=== PATIENT | male | born 1945 | race Caucasian/White ===

== ENCOUNTER 2019-02-04 07:17 | Day surgery (SDC) | payer MEDICARE ==
[~2019-02-04] VITALS: Ht 182.9 cm; Wt 86.0 kg
[~2019-02-04 07:17] MED LIST: ASPI-12 PO; ATOR10TA PO; CALC0.253 PO; CARV-49 PO; CLOP75TA15 PO; COLC0.6T67 PO; COU3T PO; COU4T PO; DOCU-28 PO; FEBU40TA PO; FERR325T39 PO; FURO40TA4 PO; HYDR-4353 PO; LIDOcaine 1% 30ml preserv. free vial IJ STA; LOSA50TA3 PO; METO-539 PO; NITR0.4T SL; ROPI0.252 PO; SPIR25TA5 PO
[2019-02-04] MEDS ORDERED: albumin 25% 100mL bottle x 1 IV ONE (07:45)
[2019-02-04 08:43] VITALS: BP 76/49
--- NOTE | 2019-02-04 09:00 | NUR ---
ULTRASOUND COMPLETED BY Charito PHELAN. PROCEDURE CANCELED DUE TO LOW AMOUNT OF FLUID PRESENT. B/P LOW ALSO. Charito PHELAN TALKED WITH PATIENT AND FAMILY REGARDING MEDICATION, B/P AND RESCHEDULING APPOINTMENT. PATIENT ASYMPTOMATIC WITH HYPOTENSION. NO DISTRESS NOTED. DISCHARGED WITH ALL BELONGINGS VIA W/C ACCOMPANIED BY SON MELITON.
[2019-02-04] MEDS ORDERED: WARF-65 PO (09:52)
[2019-02-04] MEDS ORDERED: IRON PO (09:52)
[2019-02-04] MEDS ORDERED: FEBU40TA PO (09:52)
[2019-02-04] MEDS ORDERED: O2 NASALCANN (09:53)
[2019-02-04] MEDS ORDERED: KEN0.1O TP (09:56)
== END 2019-02-04 09:10 | disposition home or self-care (01) ==
LOC: SSTAY O 07:17
PROVIDERS: ATTEND Radiology Vascular & Interventional Radiology
DX: R18.8 Other ascites (principal); Z53.8 Procedure and treatment not carried out for other reasons; I50.9 Heart failure, unspecified; Z95.1 Presence of aortocoronary bypass graft; Z98.890 Other specified postprocedural states; Z79.899 Other long term (current) drug therapy; Z79.01 Long term (current) use of anticoagulants
CPT/HCPCS: 76705; J3490

== ENCOUNTER 2019-02-10 08:44 | Day surgery (SDC) | payer MEDICARE ==
[~2019-02-10] VITALS: Ht 182.9 cm; Wt 92.7 kg
[2019-02-10] VITALS (8 sets, daily range): BP systolic 90–102; BP diastolic 55–66
[~2019-02-10 08:44] MED LIST changes: -ATOR10TA PO; -CLOP75TA15 PO; -COLC0.6T67 PO; -COU4T PO; -FERR325T39 PO; -HYDR-4353 PO; +IRON PO; +KEN0.1O TP; -LIDOcaine 1% 30ml preserv. free vial IJ STA; -NITR0.4T SL; +O2 NASALCANN; -SPIR25TA5 PO; +WARF-65 PO
[2019-02-10] MEDS ORDERED: LIDOcaine 1% 30ml preserv. free vial IJ STA (08:52)
[2019-02-10] MEDS ORDERED: normal saline 1000ml 1,000 ML IV PRN (09:25)
[2019-02-10] MEDS ORDERED: albumin 25% 100mL bottle x 1 IV ONE (09:25)
[2019-02-10 09:39] LABS: INR 1.6 INR; PROTHROMBIN TIME 15.6 SECONDS (9.0-12.0)
== END 2019-02-10 11:45 | disposition home or self-care (01) ==
LOC: SSTAY O 08:44
PROVIDERS: ATTEND Radiology Diagnostic Radiology
DX: R18.8 Other ascites (principal); I50.9 Heart failure, unspecified; Z91.048 Other nonmedicinal substance allergy status; Z91.09 Other allergy status, other than to drugs and biological substances
CPT/HCPCS: 36415; 49083; 85610; C1729; J3490; J7030; P9047

== ENCOUNTER 2019-02-21 08:30 | Day surgery (SDC) | payer MEDICARE ==
[~2019-02-21] VITALS: Ht 182.9 cm; Wt 98.9 kg
[2019-02-21 08:30] VITALS: BP 112/62
[~2019-02-21 08:30] MED LIST changes: -FURO40TA4 PO; +LIDOcaine 1% 30ml preserv. free vial SQ STA; -METO-539 PO; -ROPI0.252 PO
[2019-02-21] MEDS ORDERED: albumin 25% 100mL bottle x 1 IV PRN (09:00)
[2019-02-21] MEDS ORDERED: normal saline 1000ml 1,000 ML IV PRN (09:00)
[2019-02-21] MEDS ORDERED: ASPI-1265 PO (09:11)
[2019-02-21] MEDS ORDERED: ATOR10TA70 PO (09:11)
[2019-02-21] MEDS ORDERED: ZAR5T PO (09:11)
[2019-02-21] MEDS ORDERED: WARF-65 PO (09:11)
[2019-02-21] MEDS ORDERED: COU1T PO (09:11)
[2019-02-21] MEDS ORDERED: AMIO200T40 PO (09:11)
[2019-02-21 09:33] VITALS: BP 111/62
[2019-02-21 09:48] VITALS: BP 109/63
[2019-02-21 10:03] VITALS: BP 104/62
[2019-02-21 10:18] VITALS: BP 110/64
[2019-02-21 10:33] VITALS: BP 105/58
== END 2019-02-21 10:45 | disposition home or self-care (01) ==
LOC: SSTAY O 08:30
PROVIDERS: ATTEND Radiology Diagnostic Radiology
DX: R18.8 Other ascites (principal); I50.9 Heart failure, unspecified; Z95.1 Presence of aortocoronary bypass graft; Z95.0 Presence of cardiac pacemaker; Z79.899 Other long term (current) drug therapy; Z79.01 Long term (current) use of anticoagulants; Z82.3 Family history of stroke; Z84.89 Family history of other specified conditions
CPT/HCPCS: 49083; C1729; J3490; J7030; P9047

== ENCOUNTER 2019-03-10 08:22 | Day surgery (SDC) | payer MEDICARE ==
[~2019-03-10] VITALS: Ht 182.9 cm; Wt 100.0 kg
[~2019-03-10 08:22] MED LIST changes: +AMIO200T40 PO; -ASPI-12 PO; +ASPI-1265 PO; +ATOR10TA70 PO; +COU1T PO; -COU3T PO; -LIDOcaine 1% 30ml preserv. free vial SQ STA; -LOSA50TA3 PO; +ZAR5T PO
[2019-03-10] MEDS ORDERED: albumin 25% 100mL bottle x 1 IV PRN (08:40)
[2019-03-10] MEDS ORDERED: normal saline 1000ml 1,000 ML IV PRN (08:40)
[2019-03-10] MEDS ORDERED: FURO-149 PO (08:57)
[2019-03-10 08:59] VITALS: BP 111/66
[2019-03-10 09:20] VITALS: BP 130/53
[2019-03-10 09:30] VITALS: BP 108/64
[2019-03-10 09:45] VITALS: BP 102/61
[2019-03-10 10:00] VITALS: BP 98/51
[2019-03-10] MEDS ORDERED: LIDOcaine 1% 30ml preserv. free vial SQ ONE (10:00)
[2019-03-10 10:15] VITALS: BP 106/61
== END 2019-03-10 10:40 | disposition home or self-care (01) ==
LOC: SSTAY O 08:22
PROVIDERS: ATTEND Radiology Vascular & Interventional Radiology
DX: R18.8 Other ascites (principal); I50.9 Heart failure, unspecified; Z95.1 Presence of aortocoronary bypass graft; Z98.890 Other specified postprocedural states; Z79.899 Other long term (current) drug therapy; Z95.0 Presence of cardiac pacemaker; Z91.048 Other nonmedicinal substance allergy status; Z79.82 Long term (current) use of aspirin; Z82.3 Family history of stroke
CPT/HCPCS: 49083; C1729; J3490; J7030; P9047

== ENCOUNTER 2019-03-18 08:38 | Day surgery (SDC) | payer MEDICARE ==
[~2019-03-18] VITALS: Ht 182.9 cm; Wt 95.4 kg
[~2019-03-18 08:38] MED LIST changes: +FURO-149 PO; -KEN0.1O TP
[2019-03-18 09:00] VITALS: BP 119/73
[2019-03-18] MEDS ORDERED: LIDOcaine 1% 30ml preserv. free vial SQ ONE (09:00)
[2019-03-18] MEDS ORDERED: albumin 25% 100mL bottle x 1 IV PRN (09:00)
[2019-03-18] MEDS ORDERED: normal saline 1000ml 1,000 ML IV PRN (09:00)
[2019-03-18 09:15] VITALS: BP 119/73
[2019-03-18 09:30] VITALS: BP 109/58
[2019-03-18 09:45] VITALS: BP 96/59
[2019-03-18 10:00] VITALS: BP 102/58
[2019-03-18 10:15] VITALS: BP 98/59
== END 2019-03-18 10:45 | disposition home or self-care (01) ==
LOC: SSTAY O 08:38
PROVIDERS: ATTEND Radiology Vascular & Interventional Radiology
DX: R18.8 Other ascites (principal); I50.9 Heart failure, unspecified; Z79.01 Long term (current) use of anticoagulants; Z79.899 Other long term (current) drug therapy; Z95.1 Presence of aortocoronary bypass graft; Z98.890 Other specified postprocedural states; Z82.3 Family history of stroke
CPT/HCPCS: 49083; C1729; J3490; J7030; P9047

== ENCOUNTER 2019-03-25 08:43 | Day surgery (SDC) | payer MEDICARE ==
[2019-03-25] VITALS (7 sets, daily range): BP systolic 99–119; BP diastolic 45–63
[~2019-03-25] VITALS: Ht 182.9 cm; Wt 93.1 kg
[~2019-03-25 08:43] MED LIST changes: -FEBU40TA PO
[2019-03-25] MEDS ORDERED: albumin 25% 100mL bottle x 1 IV PRN (09:05)
[2019-03-25] MEDS ORDERED: normal saline 1000ml 1,000 ML IV PRN (09:05)
[2019-03-25] MEDS ORDERED: ASPI-13 PO (09:13)
[2019-03-25] MEDS ORDERED: LIDOcaine 1% 30ml preserv. free vial SQ ONE (10:00)
== END 2019-03-25 10:45 | disposition home or self-care (01) ==
LOC: SSTAY O 08:43
PROVIDERS: ATTEND Radiology Diagnostic Radiology
DX: R18.8 Other ascites (principal); I50.9 Heart failure, unspecified
CPT/HCPCS: 49083; C1729; J3490; J7030; P9047

== ENCOUNTER 2019-04-14 08:08 | Day surgery (SDC) | payer MEDICARE ==
[2019-04-14] VITALS (7 sets, daily range): BP systolic 91–104; BP diastolic 54–62
[~2019-04-14] VITALS: Ht 182.9 cm; Wt 96.7 kg
[~2019-04-14 08:08] MED LIST changes: -ASPI-1265 PO; +ASPI-13 PO
[2019-04-14] MEDS ORDERED: albumin 25% 100mL bottle x 1 IV PRN (08:45)
[2019-04-14 11:34] LABS: EOSINOPHILS,BODY FLUID 1 %; LYMPHOCYTES,BODY FLUID 32 %; MONOCYTES,BODY FLUID 2 %; NEUTROPHILS,BODY FLUID 65 %
[2019-04-14 11:43] LABS: BFAPPEAR CLOUDY; BFCOLOR RED; BFVOLUME 48 ML
[2019-04-14 11:44] LABS: BF RBC COUNT 103000 /CU MM; BF WBC COUNT 333 /CU MM (0-1000)
[2019-04-20] MEDS ORDERED: COU3T PO (08:37)
== END 2019-04-14 10:40 | disposition home or self-care (01) ==
LOC: SSTAY O 08:08
PROVIDERS: ATTEND Radiology Diagnostic Radiology
DX: R18.8 Other ascites (principal); I50.9 Heart failure, unspecified; Z95.5 Presence of coronary angioplasty implant and graft; Z79.899 Other long term (current) drug therapy; Z95.0 Presence of cardiac pacemaker; Z79.01 Long term (current) use of anticoagulants; Z98.890 Other specified postprocedural states; Z91.048 Other nonmedicinal substance allergy status; Z86.73 Personal history of transient ischemic attack (TIA), and cerebral infarction without residual deficits
CPT/HCPCS: 49083; 87070; 89051; C1729; P9047

== ENCOUNTER 2019-04-27 08:12 | Day surgery (SDC) | payer MEDICARE ==
[~2019-04-27] VITALS: Ht 182.9 cm; Wt 96.0 kg
[~2019-04-27 08:12] MED LIST changes: -COU1T PO; +COU3T PO
[2019-04-27 08:25] VITALS: BP 112/69
[2019-04-27] MEDS ORDERED: albumin 25% 100mL bottle x 1 IV PRN (08:35)
[2019-04-27 09:25] VITALS: BP 96/54
[2019-04-27 09:30] VITALS: BP 107/60
[2019-04-27 09:45] VITALS: BP 112/61
[2019-04-27 10:00] VITALS: BP 106/71
[2019-04-27 10:10] VITALS: BP 110/67
== END 2019-04-27 10:20 | disposition home or self-care (01) ==
LOC: SSTAY O 08:12
PROVIDERS: ATTEND Radiology Diagnostic Radiology
DX: R18.8 Other ascites (principal); I50.9 Heart failure, unspecified; Z98.890 Other specified postprocedural states; Z95.1 Presence of aortocoronary bypass graft; Z79.899 Other long term (current) drug therapy; Z79.01 Long term (current) use of anticoagulants; Z91.041 Radiographic dye allergy status
CPT/HCPCS: 49083; C1729; J3490